=== PATIENT | female | born 2000 | race Caucasian/White ===

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

== ENCOUNTER 2019-03-19 14:01 | Outpatient (REF) | payer MEDICAID, SELFPAY ==
[2019-03-19 21:19] LABS: HCT 41.5 % (36.0-46.0); HGB 13.8 g/dL (12.0-15.5); Mean Corp. HGB Concentration 33.3 g/dL (32.0-36.0); Mean Corpuscular Hemoglobin 29.6 pg (27.0-33.0); Mean Corpuscular Volume 89.1 fL (80-95); Mean Platelet Volume 11.7 fL (8.0-11.0); Platelet Count 259 x1000/uL (130-400); RBC 4.66 m/cumm (4.00-5.20); RBC Distribution Width 13.3 % (11.7-14.6); White Blood Cell Count 12.33 k/cumm (4.4-10.8)
[2019-03-19 21:30] LABS: Anion Gap 10.9 mmol/L (3-11); BUN 10 mg/dL (7-18); CO2 25.1 mmol/L (21.0-32.0); CREATININE 0.58 mg/dL (0.55-1.02); Calcium 9.3 mg/dL (8.5-10.1); Chloride 105 mmol/L (98-107); Glucose 102 mg/dL (70-100); Sodium 141 mmol/L (136-145); TSH (W/Ref FT4) 1.52 uIU/mL (0.52-4.13)
[2019-03-22 08:00] LABS: Vitamin D 25 Total 21.8 ng/ml (30-100)
== END 2019-03-19 14:21 ==
LOC: NCHCN 14:01
PROVIDERS: PCP Pediatrics; Visit Provider Nurse Practitioner Family
DX: R53.83 Other fatigue (principal)
CPT/HCPCS: 80048; 82306; 85027; 84443

== ENCOUNTER 2020-06-02 13:48 | Outpatient (CLI) | payer SELFPAY ==
[2020-06-05 10:23] LABS: SARS-CoV-2 RNA Not Detected (NotDetected); SARS-CoV-2 RNA Source Nasal/Nares
== END 2020-06-02 14:08 ==
PROVIDERS: PCP Pediatrics; Visit Provider Nurse Practitioner Family
DX: J06.9 Acute upper respiratory infection, unspecified (principal)
CPT/HCPCS: U0003

== ENCOUNTER 2020-06-16 13:53 | Outpatient (CLI) | payer SELFPAY ==
[2020-06-19 14:16] LABS: COVID-19 RT-PCR Result NEGATIVE (Negative)
== END 2020-06-16 14:13 ==
PROVIDERS: PCP Pediatrics; Visit Provider Nurse Practitioner Family
DX: Z20.828 Contact with and (suspected) exposure to other viral communicable diseases (principal)
CPT/HCPCS: U0003

== ENCOUNTER 2020-06-21 17:16 | Outpatient (REF) | payer SELFPAY ==
[2020-06-24 09:59] LABS: COVID-19 RT-PCR Result NEGATIVE (Negative)
== END 2020-06-21 17:36 ==
LOC: NCHCN 17:16
PROVIDERS: PCP Pediatrics; Visit Provider Nurse Practitioner Family
DX: Z20.828 Contact with and (suspected) exposure to other viral communicable diseases (principal)
CPT/HCPCS: U0003

== ENCOUNTER 2021-02-09 14:49 | Outpatient (REF) | payer OTHER, SELFPAY ==
--- NOTE | 2021-02-09 14:00 | PAPFT_PTH ---
PATIENT: Rehana Escamilla LOC: [facility] U#:[id number] AGE/SX: 20/F ROOM: RE02/09/[address]: Nereida Burns : 2000 BED: DIS: 02/09/2021 SPEC #: [id number] RECD: 02/12/21 13:11 STATUS: CHEO BROWN #: [id number] ANABEL: 02/09/21 14:[address]: Nereida Burns DEPT: [facility] Cytology RECD BY: Anastasiya Bishop ENTERED: 02/12/21 13:11 SP TYPE: PAPFT OTHR DR: Sherlyn Butcher MD Tissues: 1 - CX/ENDOCX FOR PAP SMEARS Procedures: PAP THIN PREP/[facility] Screening Comments: [id number] (CHLAMYDIA/GC)
[2021-02-13 14:59] LABS: Chlamydia Result Negative (Negative); GC Result Negative (Negative)
== END 2021-02-09 14:50 | disposition home or self-care (01) ==
LOC: LBN 14:49
PROVIDERS: PCP Pediatrics; Visit Provider Nurse Practitioner Family
DX: Z00.00 Encounter for general adult medical examination without abnormal findings (principal); Z01.419 Encounter for gynecological examination (general) (routine) without abnormal findings; Z12.4 Encounter for screening for malignant neoplasm of cervix; Z11.3 Encounter for screening for infections with a predominantly sexual mode of transmission
CPT/HCPCS: 87491; 87591; 88142

== ENCOUNTER 2021-03-14 14:05 | Outpatient (CLI) | payer OTHER, SELFPAY ==
--- NOTE | 2021-03-14 | DI.RAD_ITS ---
Exam(s) XR FOOT LT COMPLETE EXAM: XR FOOT LT COMPLETE CLINICAL HISTORY: ROLLED ANKLE, TENDER BRUISING BASE OF 5TH METARSAL,PAIN. TECHNIQUE: 2D digital imaging was performed. COMPARISON: No exams were available for comparison FINDINGS: BONES: There is a question of a lucency versus artifact seen on the dorsal plantar view at the base o f the 5th metatarsal extending transversely. No bony destructive lesion is seen. JOINTS: No dislocation present. SOFT TISSUE: Normal. IMPRESSION: Question of a nondisplaced fracture versus artifact of the base of the 5th metatarsal. DATA REPOSITORY: RADIATION DOSE DELIVERED:
== END 2021-03-14 14:25 ==
PROVIDERS: PCP Pediatrics; Visit Provider Family Medicine
DX: M25.572 Pain in left ankle and joints of left foot (principal)
CPT/HCPCS: 73630

== ENCOUNTER 2021-10-15 08:35 | Emergency (ER) | payer OTHER, SELFPAY ==
[2021-10-15 08:44] VITALS: BP 98/74; PULSE 60; RESP 16; TEMP 36.5; O2SAT 99
--- NOTE | 2021-10-15 08:59 | ED.GENADUL_ITS ---
Discharge Plan Disposition Patient Disposition: HOME Condition: Improving Discharge Details Clinical Impression: Gastroenteritis Primary Care Provider: Jeremiah Easton ED Provider: Vaughn Bauman Home Meds and New Rx's Prescriptions: New ondansetron 4 mg tablet,disintegrating 4 mg PO Q6H PRN (Reason: nausea and vomiting) Qty: 10 0RF Continued escitalopram oxalate [Lexapro] 20 mg tablet 20 mg PO DAILY 0RF hydroxyzine HCl 25 mg tablet 25 mg PO QHS 0RF sertraline 50 mg tablet 75 mg PO DAILY 0RF calcium carbonate-vitamin D3 600 mg(1,500mg) -800 unit tablet 1 tab PO DAILY 0RF Nexplanon 68 MG implant 68 mg SQ ONCE Qty: 1 0RF lidocaine [Lidoderm] 1 PATCH patch 1 patch Topical Q24H Qty: 4 0RF Discharge Instructions Instructions: Gastroenteritis (ED) Additional Instructions: Please feel free to return to the emergency department if you have any new or significant worsening of symptoms such as severe abdominal pain, uncontrollable vomiting, persistent fever, or change in condition. Please stay well-hydrated and if you do not have any improvement over the next couple days feel free to reach out to your primary care provider for reassessment as needed. Referrals: Jeremiah Easton [Primary Care Provider] - 5 days (If not improving) Discharge Data Discharge Date/Time-TO BE ENTERED AT DEPARTURE: 10/15/21 13:30 Medical Decision Making Patient presenting to the emergency department for chief complaint of abdominal pain nausea vomiting. Approximately 2 hours prior to arrival she started having left upper quadrant pain, nausea and vomiting. Patient does state subjective fever and chills otherwise denies all other symptoms. Physical exam shows diffuse abdominal tenderness with slightly more point tenderness to left upper quadrant. Exam otherwise unremarkable. Plan to perform abdominal lab hydrate and give antiemetic and pain medication pending results. We will also plan on CT imaging Review of labs show a significant elevated white count of 21.44 with elevation of absolute neutrophils otherwise nondiagnostic. CMP shows elevated anion gap, low carbon dioxide elevated glucose and high total protein. I am concerned for possible dehydration and will give additional fluids. Lipase is normal and beyond urine ketones urine is nondiagnostic. CT shows possible colitis. Will plan on giving additional fluids and repeat of labs. Reassesed patinet after fluids which she states she feels better. Labs were drawn and PO challenged patient Labs have improved and pt tolerating PO intake will DC patient with standard return and follow up precautions Imaging Data Radiologic Study: Imaging: CT Scan Radiologist's impression: IMPRESSION: 1. Colon is collapsed. This appearance may mimic that of colitis. Correlation with clinical findings recommended. Correlation with any clinical signs of ulcerative colitis recommended. There is no evidence of appendicitis. No significant diverticular disease. 2. There is a 24 x 24 x 26 millimeter cyst in the left ovary. There is small amount of fluid in the cul-de-sac. 3. Subtle evidence of possible sacroiliitis. Lab Data Lab results reviewed: Yes I reviewed the patient's lab results. Labs: Laboratory Tests Range/Units 10/15/21 10/15/21 10/15/21 09:05 09:05 10:13 WBC (4.4-10.8) 10^3/uL 21.44 H RBC (3.93-5.22) 10^6/uL 4.99 Hgb (11.2-15.7) g/dL 14.5 Hct (36.0-46.0) % 44.2 MCV (80-95) fL 88.6 MCH (27.0-33.0) pg 29.1 MCHC (32.0-36.0) % 32.8 RDW (11.7-14.6) % 12.7 Plt Count (130-400) 10^3/uL 353 MPV (8.0-11.0) fL 11.3 H Immature Gran % 0.5 Neutrophils % 83.6 Lymphocytes % 10.6 Monocytes % 3.5 Eosinophils % 1.1 Basophils % 0.7 Nucleated RBC % % 0 Absolute Neutrophils (1.2-6.7) 10^3/uL 17.92 H Absolute Lymphocytes (1.2-3.4) 10^3/uL 2.27 Absolute Monocytes (0.1-0.8) 10^3/uL 0.75 Absolute Eosinophils (0.0-0.7) 10^3/uL 0.24 Absolute Basophils (0.0-0.2) 10^3/uL 0.15 Sodium (136-145) mmol/L 138 Potassium (3.5-5.1) mmol/L 3.8 Chloride (98-107) mmol/L 103 Carbon Dioxide (21.0-32.0) mmol/L 20.1 L Anion Gap (3-11) mmol/L 14.9 H BUN (7-18) mg/dL 9 Creatinine (0.55-1.02) mg/dL 0.7 Estimated GFR/1.73 m2 (mL/min/1.73m2) >= 60.00 Glucose (74-106) mg/dL 178 H Calcium (8.5-10.1) mg/dL 9.6 Magnesium (1.8-2.4) mg/dL 1.8 Total Bilirubin (0.2-1.0) mg/dL 0.3 AST (15-37) U/L 19 ALT (14-59) U/L 29 Alkaline Phosphatase (46-116) U/L 116 Total Protein (6.4-8.2) g/dL 8.4 H Albumin (3.4-5.0) g/dL 4.7 Lipase (73-393) U/L 35 Urine Color (Yellow) Yellow Urine Clarity (Clear) Clear Urine pH (5-8) 8.5 H Ur Specific [place] (1.005-1.025) 1.025 Urine Protein (Negative) mg/dL Negative Urine Ketones (Negative) mg/dL Trace H Urine Blood (Negative) Negative Urine Nitrite (Negative) Negative Urine Bilirubin (Negative) Negative Urine Urobilinogen (Up TO 0.2) EU/dL 0.2 Ur Leukocyte Esterase (Negative) Negative Urine Glucose (Negative) mg/dL Negative Range/Units 10/15/21 13:07 WBC (4.4-10.8) 10^3/uL 12.38 H D RBC (3.93-5.22) 10^6/uL 4.31 Hgb (11.2-15.7) g/dL 12.6 Hct (36.0-46.0) % 38.8 MCV (80-95) fL 90.0 MCH (27.0-33.0) pg 29.2 MCHC (32.0-36.0) % 32.5 RDW (11.7-14.6) % 12.7 Plt Count (130-400) 10^3/uL 275 MPV (8.0-11.0) fL 11.2 H Immature Gran % 0.4 Neutrophils % 85.9 Lymphocytes % 9.9 Monocytes % 3.0 Eosinophils % 0.1 Basophils % 0.7 Nucleated RBC % % 0 Absolute Neutrophils (1.2-6.7) 10^3/uL 10.63 H Absolute Lymphocytes (1.2-3.4) 10^3/uL 1.23 Absolute Monocytes (0.1-0.8) 10^3/uL 0.37 Absolute Eosinophils (0.0-0.7) 10^3/uL 0.01 Absolute Basophils (0.0-0.2) 10^3/uL 0.09 Sodium (136-145) mmol/L Potassium (3.5-5.1) mmol/L Chloride (98-107) mmol/L Carbon Dioxide (21.0-32.0) mmol/L Anion Gap (3-11) mmol/L BUN (7-18) mg/dL Creatinine (0.55-1.02) mg/dL Estimated GFR/1.73 m2 (mL/min/1.73m2) Glucose (74-106) mg/dL Calcium (8.5-10.1) mg/dL Magnesium (1.8-2.4) mg/dL Total Bilirubin (0.2-1.0) mg/dL AST (15-37) U/L ALT (14-59) U/L Alkaline Phosphatase (46-116) U/L Total Protein (6.4-8.2) g/dL Albumin (3.4-5.0) g/dL Lipase (73-393) U/L Urine Color (Yellow) Urine Clarity (Clear) Urine pH (5-8) Ur Specific [place] (1.005-1.025) Urine Protein (Negative) mg/dL Urine Ketones (Negative) mg/dL Urine Blood (Negative) Urine Nitrite (Negative) Urine Bilirubin (Negative) Urine Urobilinogen (Up TO 0.2) EU/dL Ur Leukocyte Esterase (Negative) Urine Glucose (Negative) mg/dL HPI General Mode of arrival: ambulatory . Date/Time Provider Initiated Documentation: 10/15/21 08:50 . Limitations to Documentation: no limitations . Information obtained by: patient, RN notes reviewed and old records reviewed . History of Present Illness 20 year old F presents to the emergency department with the chief complaint of Abdominal pain, described as moderate, with intensity rated at 8. Quality is described as aching, and is localized to the abdomen. Patient reports no radiation. Patient started experiencing this hour(s) (2) and it has been constant. improves with No relieving factors improve symptom(s), No exacerbating factors reported . Patient notes fever/chills and nausea/vomiting. Patient did receive the following treatments prior to arrival, none Related Data Home Medications Medication Instructions Recorded Confirmed etonogestrel 68 mg subdermal 68 mg SQ ONCE #1 implant 01/09/18 10/15/21 implant (Nexplanon) lidocaine 5 % topical patch 1 patch TOPICAL Q24H #4 patch 08/29/18 10/15/21 (Lidoderm) escitalopram oxalate 20 mg tablet 20 mg PO DAILY 01/12/21 10/15/21 (Lexapro) hydroxyzine HCl 25 mg tablet 25 mg PO QHS 01/12/21 10/15/21 calcium carbonate 600 mg-vitamin 1 tab PO DAILY 04/03/21 10/15/21 D3 20 mcg (800 unit) tablet sertraline 50 mg tablet 75 mg PO DAILY tab 04/03/21 10/15/21 ondansetron 4 mg disintegrating 4 mg PO Q6H PRN #10 tab 10/15/21 tablet Previous Rx's Medication Instructions Recorded etonogestrel 68 mg subdermal 68 mg SQ ONCE #1 implant 01/09/18 implant (Nexplanon) lidocaine 5 % topical patch 1 patch TOPICAL Q24H #4 patch 08/29/18 (Lidoderm) ondansetron 4 mg disintegrating 4 mg PO Q6H PRN #10 tab 10/15/21 tablet Allergies Allergy/AdvReac Type Severity Reaction Status Date / Time nickel Allergy rash Unverified 10/15/21 08:51 General Stated Complaint: Abd Prob ASHER: 3 Review of Systems Constitutional Constitutional: Reports chills, Denies fever(s) and Reports poor appetite Cardiovascular Cardiovascular: Denies chest pain and Denies dyspnea Respiratory Respiratory: Denies cough and Denies dyspnea Gastrointestinal Gastrointestinal: Reports as per HPI, Reports abdominal pain, Denies melena, Denies change in bowel habits, Denies constipation, Denies diarrhea, Reports nausea and Reports vomiting Genitourinary Genitourinary: Denies hematuria, Denies urinary incontinence, Denies urinary hesitancy and Denies urinary urgency Integumentary/Breasts Skin/Breast: Denies rash PFSH All Active Problems (Updated 10/15/21 @ 13:25 by Vaughn Bauman NP) Gastroenteritis (Acute) Contraceptive management (Acute) Medical History Depression Nexplanon in place 12/22/2017 Nexplanon inserted Tobacco use Family History Mother No problems noted. Father Essential hypertension Social History Smoking/Tobacco Use Status: Current every day Tobacco Type: cigarettes Second Hand Exposure: Yes Smoking risk assessment performed?: Yes Alcohol Intake: current Alcohol Intake frequency: other Details: ONCE PER WEEK Drug use: Daily Substance use type: marijuana and other Details: daily Number of Children: 0 Current gender identity: female Seatbelt use: always Do you feel safe at home: Yes Do you feel safe in your relationship?: Yes Female Reproductive History Menstrual Age of Menarche: 11 control method: implanted (NEXPLANON) Exam Const General: cooperative Orientation: alert, awake and oriented x3 Resp Effort & Inspection: normal respiratory effort and able to speak in complete sentences Auscultation: clear to auscultation bilaterally Cardio Rate: regular rate Rhythm: regular rhythm Heart Sounds: S1 normal and S2 normal GI Palpation: soft, no hepatosplenomegaly, not firm, no guarding, no masses, no pulsatile masses, not rigid, no splenomegaly and tender Auscultation: normal bowel sounds Back/Spine/Pelvis Back: no CVA tenderness Neuro General: patient alert, patient awake, patient oriented x3, gait normal and moves all extremities Course Vital Signs Vital signs: Vital Signs Temperature 36.5 C 10/15/21 08:44 Pulse 60 10/15/21 08:44 Respiratory Rate 16 10/15/21 08:44 Blood Pressure 98/74 L 10/15/21 08:44 Pulse Oximetry 99 10/15/21 08:44 Temperature 36.5 C 10/15/21 08:44 Temperature Source Oral 10/15/21 08:44 Pulse 60 10/15/21 08:44 Respiratory Rate 16 10/15/21 08:44 Respiratory Effort Non-Labored 10/15/21 08:50 Blood Pressure 98/74 L 10/15/21 08:44 Blood Pressure Position Sitting 10/15/21 08:44 Pulse Oximetry 99 10/15/21 08:44 Oxygen Delivery Method Room Air 10/15/21 08:44 Oxygen Flow Rate 0 10/15/21 08:44 Pain Level 9 10/15/21 08:44
[2021-10-15] MEDS: Normal Saline Flush 10 ML SYR IVP (09:12)
[2021-10-15] MEDS: Ondansetron 4 MG/2 ML VIAL IVP (09:14)
[2021-10-15] MEDS: Normal Saline 1,000 ML 1000 ML IV ×2 (09:15→11:59)
[2021-10-15 09:17] LABS: Abs Immature Grans 0.11 10^3/uL (0.0-0.06); Absolute Eosinophil Count 0.24 10^3/uL (0.0-0.7); Absolute Monocyte Count 0.75 10^3/uL (0.1-0.8); Absolute Neutrophil Count 17.92 10^3/uL (1.2-6.7); Basophils % 0.7; Eosinophils % 1.1; HCT 44.2 % (36.0-46.0); HGB 14.5 g/dL (11.2-15.7); Immature Grans % 0.5; Lymphocytes % 10.6; MCH 29.1 pg (27.0-33.0); MCHC 32.8 % (32.0-36.0); MCV 88.6 fL (80-95); MPV 11.3 fL (8.0-11.0); Monocytes % 3.5; Neutrophils % 83.6; Nucleated RBC 0 %; Platelet Count 353 10^3/uL (130-400); RBC 4.99 10^6/uL (3.93-5.22); RDW 12.7 % (11.7-14.6); RDW-SD 41.1 fL; WBC 21.44 10^3/uL (4.4-10.8)
[2021-10-15 09:22] LABS: Absolute Basophil Count 0.15 10^3/uL (0.0-0.2); Absolute Lymphocyte Count 2.27 10^3/uL (1.2-3.4)
[2021-10-15 09:30] LABS: ALT 29 U/L (14-59); AST 19 U/L (15-37); Albumin 4.7 g/dL (3.4-5.0); Alkaline Phosphatase 116 U/L (46-116); Anion Gap 14.9 mmol/L (3-11); BUN 9 mg/dL (7-18); Bilirubin, Total 0.3 mg/dL (0.2-1.0); CO2 20.1 mmol/L (21.0-32.0); CREATININE 0.7 mg/dL (0.55-1.02); Calcium 9.6 mg/dL (8.5-10.1); Chloride 103 mmol/L (98-107); Glucose 178 mg/dL (74-106); Lipase 35 U/L (73-393); Magnesium 1.8 mg/dL (1.8-2.4); Potassium 3.8 mmol/L (3.5-5.1); Sodium 138 mmol/L (136-145); Total Protein 8.4 g/dL (6.4-8.2)
[2021-10-15] MEDS: HYDROmorphone 2 MG/ML VIAL 1 MG IVP (10:25)
[2021-10-15 10:26] LABS: Bilirubin Negative (Negative); Blood Negative (Negative); Clarity Clear (Clear); Glucose Negative (Negative); Ketones Trace mg/dL (Negative); Leukocyte Esterase Negative (Negative); Nitrite Negative (Negative); Specific Gravity 1.025 (1.005-1.025); Urobilinogen 0.2 EU/dL (Up TO 0.2); pH 8.5 (5-8)
--- NOTE | 2021-10-15 11:01 | DI.CT_ITS ---
Exam(s) CT ABDOMEN PELVIS W EXAM: CT ABDOMEN PELVIS W CLINICAL HISTORY: Left upper quadrant abdominal pain nausea vomiting. TECHNIQUE: Imaging Protocol: Axial computed tomography images with coronal and sagittal reformatted images were created and reviewed CONTRAST MATERIAL: Intravenous: Omnipaque 100cc Oral: None COMPARISON: No exams were available for comparison FINDINGS: VISUALIZED LUNG BASES: No nodules nor pleural effusions evident. ABDOMEN: There is no ascites. LIVER: There are no focal hepatic lesions evident . GALLBLADDER/BILIARY: No obvious gallbladder pathology. CBD is not dilated. PANCREAS: No evidence of pancreatic mass nor dilatation of the pancreatic duct. SPLEEN: Spleen size is normal. No splenic lesions. One centimeter benign splenule noted anterior to the spleen. Left hepatic lobe crosses the midline to encircle the spleen, a variant of normal. Spl enic and portal veins are patent. ADRENALS: There are no significant adrenal masses. KIDNEYS:No cysts evident. No solid renal masses. No calculi nor hydronephrosis.. ABDOMINAL AORTA: Abdominal aorta is not enlarged. LYMPH NODES:There is no retroperitoneal nor paraaortic adenopathy. ABDOMINAL WALL: No evidence of significant anterior abdominal wall nor inguinal hernia. GI: There is no evidence of bowel obstruction, free air, nor abscess. However, the appearance of the transverse colon is somewhat suspect. Cannot exclude possibility of c olitis although similar for appearance can be seen with simply under XXXX under distended colon. The re are no diverticuli. No appendicitis PELVIS: GI: No evidence of appendicitis.No evidence of sigmoid diverticulitis. LYMPH NODES: There is no intrapelvic nor inguinal adenopathy. REPRODUCTIVE: Uterus size is normal. There is a cyst in the left ovary which measures 2.4 x 2.4 by 2 .6 cm. Smaller cysts are noted in the opposite-right ovary. There is a small amount of free fluid i n the cul-de-sac. URINARY BLADDER: No calculi nor obvious masses evident OSSEOUS: No significant osseous lesions. There is some increased density in both sides of the sacroiliac joints. Possible sacroiliitis. No a nkylosis of the SI joints. IMPRESSION: 1. Colon is collapsed. This appearance may mimic that of colitis. Correlation with clinical finding s recommended. Correlation with any clinical signs of ulcerative colitis recommended. There is no e vidence of appendicitis. No significant diverticular disease. 2. There is a 24 x 24 x 26 millimeter cyst in the left ovary. There is small amount of fluid in the cul-de-sac. 3. Subtle evidence of possible sacroiliitis. 4. RADIATION DOSE DELIVERED: 748.45mGy.cm Total DLP DATA REPOSITORY: All CT scans at this facility are submitted to the National Radiology Data Registry (NRDR) Dose Index Registry (DIR) with the [employer] ([employer]). RADIATION OPTIMIZATION: All CT scans at this facility use at least one of these dose optimization te chniques: automated exposure control; mA and/or kV adjustment per patient size (includes targeted exa ms where dose is matched to clinical indication); or iterative reconstruction.
[2021-10-15] MEDS: Omnipaque 350 MG/ML 100 ML BTL IJ (11:09)
[2021-10-15 13:15] LABS: Abs Immature Grans 0.05 10^3/uL (0.0-0.06); Absolute Basophil Count 0.09 10^3/uL (0.0-0.2); Absolute Eosinophil Count 0.01 10^3/uL (0.0-0.7); Absolute Monocyte Count 0.37 10^3/uL (0.1-0.8); Basophils % 0.7; Eosinophils % 0.1; HCT 38.8 % (36.0-46.0); HGB 12.6 g/dL (11.2-15.7); Immature Grans % 0.4; Lymphocytes % 9.9; MCH 29.2 pg (27.0-33.0); MCHC 32.5 % (32.0-36.0); MPV 11.2 fL (8.0-11.0); Neutrophils % 85.9; Nucleated RBC 0 %; Platelet Count 275 10^3/uL (130-400); RBC 4.31 10^6/uL (3.93-5.22); RDW 12.7 % (11.7-14.6); RDW-SD 42.4 fL; WBC 12.38 10^3/uL (4.4-10.8)
[2021-10-15 13:16] LABS: Absolute Lymphocyte Count 1.23 10^3/uL (1.2-3.4); Absolute Neutrophil Count 10.63 10^3/uL (1.2-6.7)
== END 2021-10-15 13:30 | disposition home or self-care (01) ==
PROVIDERS: Emergency Provider Nurse Practitioner Family; PCP Family Medicine
DX: K52.9 Noninfective gastroenteritis and colitis, unspecified (principal); D72.829 Elevated white blood cell count, unspecified; R50.9 Fever, unspecified; R10.12 Left upper quadrant pain; R11.2 Nausea with vomiting, unspecified
CPT/HCPCS: 36415; 80053; 81025; 83690; 96361; 96365; 96375; 99285; 74177; 81003; 83735; 85025; 99284; J2405; J3490

== ENCOUNTER 2022-02-12 09:34 | Emergency (ER) | payer BC, SELFPAY ==
[2022-02-12 09:39] VITALS: BP 130/74; PULSE 60; RESP 20; TEMP 36.2; O2SAT 100
--- NOTE | 2022-02-12 09:58 | W.ED.GENAD ---
Discharge Plan Disposition Patient Disposition: HOME Condition: Improving Discharge Details Clinical Impression: Nausea and vomiting, Abdominal pain Primary Care Provider: Jeremiah Easton ED Provider: Pablo Powell Home Meds and New Rx's Prescriptions: New prochlorperazine maleate [Compazine] 10 mg tablet 10 mg PO Q8H PRNQty: 10 0RF promethazine 25 mg suppository 25 mg [place] Q6H PRNQty: 12 0RF Continued escitalopram oxalate [Lexapro] 20 mg tablet 20 mg PO DAILY hydroxyzine HCl 25 mg tablet 25 mg PO QHS Nexplanon 68 MG implant 68 mg SQ ONCE Qty: 1 0RF omeprazole 40 mg Capsule,Delayed Release(Dr/Ec) 40 mg PO DAILY bupropion HCl 300 mg Tablet Extended Release 24 Hr 300 mg PO DAILY Discharge Instructions Instructions: Acute Nausea and Vomiting (ED), Abdominal Pain (ED) Additional Instructions: Compazine and Phenergan as directed. Clear liquid diet, advance as tolerated. Please watch for new or worsening symptoms and return to the ER as needed. I strongly recommend contacting your primary care provider later today or tomorrow to discuss your ongoing symptoms, need for outpatient reevaluation, and likely referral to our surgical team for potential endoscopy. Stand Alone Forms: Work Release Discharge Data Discharge Date/Time-TO BE ENTERED AT DEPARTURE: 02/12/22 15:02 Medical Decision Making 21-year-old female presents with intermittent abdominal pain, nausea, vomiting, diarrhea since her first episode in October. This episode began this morning just a few hours ago. She has been seen by her PCP, started on omeprazole, and plan to have a H. pylori test once she is off of her omeprazole. I reviewed the record from October when she had a similar presentation, it appears as though Zofran worked well at that time. I have initially ordered Zofran but patient and family report that she has been told that she has a sinus arrhythmia in the past. Patient will have an EKG performed. Based upon EKG, will give Phenergan rather than Zofran. IV access obtained, will obtain routine screening laboratory values, give IV fluid, and provide antiemetics. Patient received Phenergan, nausea improved but continues to have pain. Mylanta and lidocaine given p.o., patient reports significant improvement of her pain Patient reports nausea and vomiting again, given Compazine. Responded well. White blood cell count of 17.16; however, on 10-15-2021 when she had a similar presentation her white blood cell count was 21.44. CT at that time revealed potential mild colitis. Anion gap is 13.6. Symptoms returned, given IV Pepcid and a second dose of Phenergan. Patient received her second liter of IV fluid. Labs were redrawn, anion gap closed. Patient responded well to meds, abdomen is soft, nonacute, she is afebrile, and had a very similar presentation in October when she had a CT at that time. We did discuss repeating CT at this time but after discussing risks and benefits of repeating same study, radiation, etc. using shared decision making we opted not to pursue CT imaging. Patient continues to have occasional breakthrough nausea. We discussed options. We discussed potential admission for IV antiemetics, hydration versus dual therapy antiemetics at home, oral Compazine, suppository Phenergan, and close outpatient follow-up. Patient would prefer to go home but understands that she can return anytime for new or worsening symptoms. We also discussed the importance of outpatient follow-up through her PCP as referral to surgery services, potential endoscopy, etc. may all be indicated for further evaluation of her symptoms. We also discussed cannabinoid hyperemesis, patient reports that she is smoking marijuana daily for nearly 8 years and the symptoms are only a few months in nature. Standard discharge and return precautions were provided. Patient understands, is agreeable to this plan, and has no additional questions or concerns upon discharge. This documentation was generated using [employer] dictation system, please disregard any oddities of phrase or misspellings. Medical Records Medical records reviewed: Yes I reviewed the patient's medical records. Lab Data Lab results reviewed: Yes I reviewed the patient's lab results. Labs: Laboratory Tests Range/Units 02/12/22 02/12/22 02/12/22 09:50 09:50 12:15 WBC (4.4-10.8) 10^3/uL 17.16 H RBC (3.93-5.22) 10^6/uL 4.92 Hgb (11.2-15.7) g/dL 14.4 Hct (36.0-46.0) % 42.4 MCV (80-95) fL 86 MCH (27.0-33.0) pg 29.3 MCHC (32.0-36.0) % 34.0 RDW (11.7-14.6) % 13.1 Plt Count (130-400) 10^3/uL 309 MPV (8.0-11.0) fL 11.2 H Immature Gran % 0.5 Neutrophils % 86.0 Lymphocytes % 9.4 Monocytes % 3.1 Eosinophils % 0.3 Basophils % 0.7 Nucleated RBC % (0.0-0.3) % 0.0 Absolute Neutrophils (1.2-6.7) 10^3/uL 14.76 H Absolute Lymphocytes (1.2-3.4) 10^3/uL 1.61 Absolute Monocytes (0.1-0.8) 10^3/uL 0.53 Absolute Eosinophils (0.0-0.7) 10^3/uL 0.05 Absolute Basophils (0.0-0.2) 10^3/uL 0.12 Sodium (136-145) mmol/L 134 L Potassium (3.5-5.1) mmol/L 3.7 Chloride (98-107) mmol/L 102 Carbon Dioxide (21.0-32.0) mmol/L 18.4 L Anion Gap (3-11) mmol/L 13.6 H BUN (7-18) mg/dL 12 Creatinine (0.55-1.02) mg/dL 0.6 Estimated GFR/1.73 m2 (mL/min/1.73m2) >= 60.00 Glucose (74-106) mg/dL 179 H Calcium (8.5-10.1) mg/dL 9.8 Total Bilirubin (0.2-1.0) mg/dL 0.4 AST (15-37) U/L 18 ALT (14-59) U/L 38 Alkaline Phosphatase (46-116) U/L 91 Total Protein (6.4-8.2) g/dL 8.3 H Albumin (3.4-5.0) g/dL 4.8 Lipase (73-393) U/L 51 Urine Color (Yellow) Yellow Urine Clarity (Clear) Clear Urine pH (5-8) 7.5 Ur Specific Norvell (1.005-1.025) 1.025 Urine Protein (Negative) mg/dL Negative Urine Ketones (Negative) mg/dL 40 H Urine Blood (Negative) Trace-lysed H Urine Nitrite (Negative) Negative Urine Bilirubin (Negative) Negative Urine Urobilinogen (Up TO 0.2) EU/dL 0.2 Ur Leukocyte Esterase (Negative) Negative Urine RBC (0-2) HPF 0-2 Urine WBC (0-5) HPF Negative Ur Epithelial Cells (Negative) HPF Few Urine Crystals (Negative) HPF Negative Urine Bacteria (Negative) HPF Negative Urine Casts (Negative) LPF Negative Urine Mucus (Negative) Negative Ur Culture Indicated? No Urine Glucose (Negative) mg/dL Negative Range/Units 02/12/22 12:34 WBC (4.4-10.8) 10^3/uL RBC (3.93-5.22) 10^6/uL Hgb (11.2-15.7) g/dL Hct (36.0-46.0) % MCV (80-95) fL MCH (27.0-33.0) pg MCHC (32.0-36.0) % RDW (11.7-14.6) % Plt Count (130-400) 10^3/uL MPV (8.0-11.0) fL Immature Gran % Neutrophils % Lymphocytes % Monocytes % Eosinophils % Basophils % Nucleated RBC % (0.0-0.3) % Absolute Neutrophils (1.2-6.7) 10^3/uL Absolute Lymphocytes (1.2-3.4) 10^3/uL Absolute Monocytes (0.1-0.8) 10^3/uL Absolute Eosinophils (0.0-0.7) 10^3/uL Absolute Basophils (0.0-0.2) 10^3/uL Sodium (136-145) mmol/L 136 Potassium (3.5-5.1) mmol/L 3.3 L Chloride (98-107) mmol/L 104 Carbon Dioxide (21.0-32.0) mmol/L 22.8 Anion Gap (3-11) mmol/L 9.2 BUN (7-18) mg/dL 9 Creatinine (0.55-1.02) mg/dL 0.6 Estimated GFR/1.73 m2 (mL/min/1.73m2) >= 60.00 Glucose (74-106) mg/dL 112 H Calcium (8.5-10.1) mg/dL 8.6 Total Bilirubin (0.2-1.0) mg/dL AST (15-37) U/L ALT (14-59) U/L Alkaline Phosphatase (46-116) U/L Total Protein (6.4-8.2) g/dL Albumin (3.4-5.0) g/dL Lipase (73-393) U/L Urine Color (Yellow) Urine Clarity (Clear) Urine pH (5-8) Ur Specific Norvell (1.005-1.025) Urine Protein (Negative) mg/dL Urine Ketones (Negative) mg/dL Urine Blood (Negative) Urine Nitrite (Negative) Urine Bilirubin (Negative) Urine Urobilinogen (Up TO 0.2) EU/dL Ur Leukocyte Esterase (Negative) Urine RBC (0-2) HPF Urine WBC (0-5) HPF Ur Epithelial Cells (Negative) HPF Urine Crystals (Negative) HPF Urine Bacteria (Negative) HPF Urine Casts (Negative) LPF Urine Mucus (Negative) Ur Culture Indicated? Urine Glucose (Negative) mg/dL ECG Data Attestation: I personally reviewed and interpreted this ECG (s) as follows: Interpretation: Sinus bradycardia, ventricular rate of 53. Peaked T waves inferior and anterior lateral leads. Question minimal [place] depression. No STEMI. HPI General Mode of arrival: ambulatory. Date/Time Provider Initiated Documentation: 02/12/22 09:35. Limitations to Documentation: no limitations. Information obtained by: patient. History of Present Illness 21 year old F presents to the emergency department with the chief complaint of abd pain n/v/d, described as moderate, with intensity rated at 5. Quality is described as other (crampy), and is localized to the abdomen. Patient reports no radiation. Patient started experiencing this hour(s) (3) and it has been constant. No relieving factors improve symptom(s), No exacerbating factors reported . Patient notes no other symptoms.. Patient did receive the following treatments prior to arrival, none Related Data Home Medications Medication Instructions Recorded Confirmed etonogestrel 68 mg subdermal 68 mg SQ ONCE #1 implant 01/09/18 02/12/22 implant (Nexplanon) escitalopram oxalate 20 mg tablet 20 mg PO DAILY 01/12/21 02/12/22 (Lexapro) hydroxyzine HCl 25 mg tablet 25 mg PO QHS 01/12/21 02/12/22 bupropion HCl 300 mg 24 hr tablet, 300 mg PO DAILY 02/12/22 02/12/22 extended release omeprazole 40 mg capsule,delayed 40 mg PO DAILY 02/12/22 02/12/22 release prochlorperazine maleate 10 mg 10 mg PO Q8H PRN #10 tabs 02/12/22 tablet (Compazine) promethazine 25 mg rectal 25 mg [place] Q6H PRN #12 ea 02/12/22 suppository Previous Rx's Medication Instructions Recorded etonogestrel 68 mg subdermal 68 mg SQ ONCE #1 implant 01/09/18 implant (Nexplanon) prochlorperazine maleate 10 mg 10 mg PO Q8H PRN #10 tabs 02/12/22 tablet (Compazine) promethazine 25 mg rectal 25 mg [place] Q6H PRN #12 ea 02/12/22 suppository Allergies Allergy/AdvReac Type Severity Reaction Status Date / Time nickel Allergy rash Unverified 10/15/21 08:51 General Stated Complaint: Nausea/Vomit/Diar ASHER: 3 Review of Systems Constitutional Constitutional: Denies fever(s) ENT Ears, Nose, Mouth, and Throat: Denies neck pain Cardiovascular Cardiovascular: Denies chest pain and Denies dyspnea Respiratory Respiratory: Denies cough and Denies dyspnea Gastrointestinal Gastrointestinal: Reports abdominal pain, Denies melena, Denies hematochezia, Reports diarrhea, Reports nausea and Reports vomiting Genitourinary Genitourinary: Denies dysuria Musculoskeletal Musculoskeletal: Denies back pain and Denies neck pain Integumentary/Breasts Skin/Breast: Denies rash PFSH All Active Problems (Updated 02/12/22 @ 14:31 by TRAVON Bates) Nausea and vomiting (Acute) Abdominal pain (Acute) Contraceptive management (Acute) Medical History Depression Nexplanon in place 12/22/2017 Nexplanon inserted Tobacco use Family History Mother No problems noted. Father Essential hypertension Social History Smoking/Tobacco Use Status: Current every day Tobacco Type: cigarettes Second Hand Exposure: Yes Smoking risk assessment performed?: Yes Alcohol Intake: current Alcohol Intake frequency: other Details: ONCE PER WEEK Drug use: Daily Substance use type: marijuana and other Details: daily Number of Children: 0 Current gender identity: female Seatbelt use: always Do you feel safe at home: Yes Do you feel safe in your relationship?: Yes Female Reproductive History Menstrual Age of Menarche: 11 control method: implanted (NEXPLANON) Exam Const General: cooperative, healthy appearing, no acute distress and other (Occasional dry heave) Orientation: alert and awake [facility] Head: normal to inspection, normocephalic and atraumatic Face and sinus: normal facial exam Mouth: moist mucous membranes abnormal (Slightly dry) Throat: posterior oropharynx normal Eyes General: appearance normal, both eyes and all related structures Conjunctivae: conjunctivae normal Neck Neck: normal visual inspection, full ROM, trachea midline and supple Resp Effort & Inspection: normal respiratory effort and able to speak in complete sentences Auscultation: clear to auscultation bilaterally Cardio Rate: regular rate Rhythm: regular rhythm GI Inspection: normal to inspection Palpation: soft, not firm, no guarding, no pulsatile masses and tender (Diffuse mild, worse epigastric/LUQ) Auscultation: normal bowel sounds Back/Spine/Pelvis Back: no CVA tenderness and No back tenderness Skin General skin exam: no rashes or lesions noted Neuro General: patient alert, patient awake, moves all extremities and no focal motor deficits Cognition: normal cognition Speech: speech normal Gait: normal gait Sensory Exam: no sensory deficits noted Extrem General: normal to inspection and full ROM Psych Appearance: grossly normal Mental Status: mental status grossly normal Course Vital Signs Vital signs: Vital Signs Temperature 36.2 C L 02/12/22 09:39 Pulse 60 02/12/22 09:39 Respiratory Rate 20 02/12/22 09:39 Blood Pressure 130/74 02/12/22 09:39 Pulse Oximetry 100 02/12/22 09:39 Temperature 36.2 C L 02/12/22 09:39 Temperature Source Temporal Artery Scan 02/12/22 09:39 Pulse 60 02/12/22 09:39 Respiratory Rate 20 02/12/22 09:39 Respiratory Effort 02/12/22 09:50 Blood Pressure 130/74 02/12/22 09:39 Pulse Oximetry 100 02/12/22 09:39 Oxygen Delivery Method Room Air 02/12/22 09:39 Oxygen Flow Rate 0 02/12/22 09:39 Pain Level 9 02/12/22 09:39 PAWSS Have you Been Recently Intoxicated or Drunk Within the Last 30 days?: No Have you Ever Experienced Previous Episodes of Alcohol Withdrawal?: No Have you ever Experienced Withdrawal Seizures?: No Have you ever Experienced Delirium Tremens(DT)s?: No Have you ever undergone Alcohol Rehabilitation Treatment (i.e, inpt ot outpatient treatment programs)?: No Have you ever Experienced Blackouts?: No Have you ever Combined Alcohol with other Downers within the last 90 days?: No Have you ever Combined Alcohol with any other Substance of Abuse during the last 90 days?: No Positive Blood Alcohol level on Presentation? [PCS.BAL]: No Evidence of Increased Autonomic Activity (i.e. HR>120, tremor, sweating, agitation, nausea)?: No Result: 0
--- NOTE | 2022-02-12 10:00 | RT.EKG_ITS ---
APPROVED REPORT Exam: Resting ECG Reason for Exam: don, history Patient Location: E HR:53 bpm ECG Measurements Heart Rate 53 AXIS RI 151 P 53 QRSd 96 QRS 65 QT 511 T 55 QTc 481 Conclusion Sinus bradycardia...rate< 60 ST elevation suggests acute pericarditis...ST >0.10mV, ant/lat/inf Tall T, consider metabolic/ischemic abnrm...T >1.2mV. Sinus. Peaked T waves inferior and anterolateral leads. ?? RI depression. No STEMI.
[2022-02-12] MEDS: Normal Saline 1,000 ML 1000 ML IV (10:14)
[2022-02-12 10:16] LABS: Abs Immature Grans 0.09 10^3/uL (0.0-0.06); Absolute Basophil Count 0.12 10^3/uL (0.0-0.2); Absolute Lymphocyte Count 1.61 10^3/uL (1.2-3.4); Basophils % 0.7; Eosinophils % 0.3; HCT 42.4 % (36.0-46.0); HGB 14.4 g/dL (11.2-15.7); Immature Grans % 0.5; Lymphocytes % 9.4; MCH 29.3 pg (27.0-33.0); MCV 86 fL (80-95); MPV 11.2 fL (8.0-11.0); Monocytes % 3.1; Platelet Count 309 10^3/uL (130-400); RBC 4.92 10^6/uL (3.93-5.22); RDW 13.1 % (11.7-14.6); RDW-SD 41.1 fL; WBC 17.16 10^3/uL (4.4-10.8)
[2022-02-12 10:19] LABS: Absolute Eosinophil Count 0.05 10^3/uL (0.0-0.7); Absolute Monocyte Count 0.53 10^3/uL (0.1-0.8); Absolute Neutrophil Count 14.76 10^3/uL (1.2-6.7)
[2022-02-12 10:35] LABS: ALT 38 U/L (14-59); AST 18 U/L (15-37); Albumin 4.8 g/dL (3.4-5.0); Alkaline Phosphatase 91 U/L (46-116); Anion Gap 13.6 mmol/L (3-11); BUN 12 mg/dL (7-18); Bilirubin, Total 0.4 mg/dL (0.2-1.0); CO2 18.4 mmol/L (21.0-32.0); CREATININE 0.6 mg/dL (0.55-1.02); Calcium 9.8 mg/dL (8.5-10.1); Chloride 102 mmol/L (98-107); Glucose 179 mg/dL (74-106); Potassium 3.7 mmol/L (3.5-5.1); Sodium 134 mmol/L (136-145); Total Protein 8.3 g/dL (6.4-8.2)
[2022-02-12 10:48] LABS: Lipase 51 U/L (73-393)
[2022-02-12] MEDS: Lactated Ringers 1,000 ML 1000 ML IV (11:27)
[2022-02-12 12:31] LABS: Bilirubin Negative (Negative); Blood Trace-lysed (Negative); Clarity Clear (Clear); Glucose Negative (Negative); Ketones 40 mg/dL (Negative); Leukocyte Esterase Negative (Negative); Nitrite Negative (Negative); Specific Gravity 1.025 (1.005-1.025); Urobilinogen 0.2 EU/dL (Up TO 0.2); pH 7.5 (5-8)
[2022-02-12 12:36] LABS: Bacteria Negative HPF (Negative); C & S Indicated? No; Casts Negative LPF (Negative); Crystals Negative HPF (Negative); Epithelial Cells Few HPF (Negative); Mucus Negative (Negative); RBC 0-2 HPF (0-2); WBC Negative HPF (0-5)
[2022-02-12] MEDS: Prochlorperazine 10 MG/2 ML VIAL IVP (12:37)
[2022-02-12 12:50] VITALS: BP 134/69; RESP 20; O2SAT 100
[2022-02-12 12:56] LABS: Anion Gap 9.2 mmol/L (3-11); BUN 9 mg/dL (7-18); CO2 22.8 mmol/L (21.0-32.0); CREATININE 0.6 mg/dL (0.55-1.02); Calcium 8.6 mg/dL (8.5-10.1); Chloride 104 mmol/L (98-107); Glucose 112 mg/dL (74-106); Potassium 3.3 mmol/L (3.5-5.1); Sodium 136 mmol/L (136-145)
[2022-02-12] MEDS: diphenhydrAMINE 50 MG/ML VIAL IVP (13:54)
[2022-02-12] MEDS: Famotidine 20 MG/2 ML VIAL IVP (13:55)
== END 2022-02-12 15:02 | disposition home or self-care (01) ==
PROVIDERS: Emergency Provider Physician Assistant; PCP Family Medicine
DX: R11.2 Nausea with vomiting, unspecified (principal); R10.9 Unspecified abdominal pain; I49.8 Other specified cardiac arrhythmias
CPT/HCPCS: 36415; 80048; 80053; 81025; 83690; 93005; 96361; 96365; 96366; 96375; 99284; 81003; 81015; 85025; 93010; J0780; J1200

== ENCOUNTER 2022-03-19 02:01 | Outpatient (CLI) | payer BC, SELFPAY ==
[2022-03-19 11:55] LABS: Source Nasal/Nares
[2022-03-19 16:14] LABS: COVID-19 PCR Negative (Negative)
== END 2022-03-19 02:02 | disposition home or self-care (01) ==
LOC: LBO 02:02
PROVIDERS: PCP Family Medicine; Visit Provider Surgery
DX: Z20.822 Contact with and (suspected) exposure to COVID-19 (principal); Z01.818 Encounter for other preprocedural examination
CPT/HCPCS: 87635

== ENCOUNTER 2022-03-20 06:59 | Day surgery (SDC) | payer BC, SELFPAY ==
--- NOTE | 2022-03-20 06:52 | W.PM.ENDDOP ---
Date of service: 03/20/22 Time of Service: 08:53 Endoscopy Report DATE OF PROCEDURE: 03/20/22 PRE-OP DIAGNOSIS: Nausea and Vomiting POST-OP DIAGNOSIS: other (gastritis and esophagitis) PROCEDURE: EGD with biopsies SURGEON: Sharifa Madden ANESTHESIA TYPE: General:No Airway PATHOLOGY: other (antrum and body bx, GE junction bx) COMPLICATIONS: None DISPOSITION: same day INDICATIONS: Rehana is a pleasant 21-year-old female who is been having some nausea and vomiting intermittently with diarrhea.? She also complains of mild epigastric and left upper quadrant pain.? She complains of increased burping and the feeling of being bloated.? Omeprazole 40 mg has helped slightly.? We discussed doing an upper endoscopy.? Risks, benefits and complications have been reviewed. Complications include but are not limited to bleeding, pain, perforation, sore throat, aspiration, and adverse reaction to the medications.? Questions were entertained and answered to their satisfaction and they wished to proceed. No guarantees were given or implied. FINDINGS: inflammation of the stomach and esophagus PROCEDURE DESCRIPTION: After informed consent was obtained the patient was take to the procedure room and placed in a supine position. Monitors were applied and a time out was done. The patients name, date of , procedure type, allergies to medications and metal in their body was reviewed. A bite block was placed and the patient was sedated. Once sedated and comfortable the gastroscope was advanced through the oropharynx which was grossly normal into the esophagus. The proximal and mid-esophagus were normal. In the distal esophagus there was inflammation noted. The scope was advanced into the stomach and through the pylorus into the 3rd portion of the duodenum. The duodenum was noted to be normal. The scope was retracted back into the stomach. There was inflammation noted. Biopsies were done to rule out H. pylori. There were no ulcers. The scope was retroflexed. The cardia and fundus were noted to be normal. There was no hiatal hernia noted. The scope was retracted back into the esophagus and biopsies were done of the GE junction to rule out Flores's. The Z line was irregular. The GE junction was at 35 cm. The scope was removed and the patient was woken up and taken back to [facility] in stable condition.
--- NOTE | 2022-03-20 06:53 | W.PM.DSUDISC ---
Discharge Plan Disposition Patient Disposition: HOME Condition: Good Discharge Details Reason For Visit: EGD Attending Provider: Sharifa Madden Primary Care Provider: Jeremiah Easton Home Meds and New Rx's Prescriptions: New omeprazole 40 mg capsule,delayed release(DR/EC) 40 mg PO BID Qty: 60 0RF sucralfate [Carafate] 1 gram tablet 1 g PO QID 14 Days Qty: 56 0RF Rx Instructions: Take 30 minutes before meals and before bedtime Continued escitalopram oxalate [Lexapro] 20 mg tablet 20 mg PO DAILY hydroxyzine HCl 25 mg tablet 25 mg PO QHS Nexplanon 68 MG implant 68 mg SQ ONCE Qty: 1 0RF cholecalciferol (vitamin D3) 10 mcg (400 unit) capsule 10 mcg PO DAILY bupropion HCl 300 mg Tablet Extended Release 24 Hr 300 mg PO DAILY prochlorperazine maleate [Compazine] 10 mg tablet 10 mg PO Q8H PRNQty: 10 0RF promethazine 25 mg suppository 25 mg [place] Q6H PRNQty: 12 0RF Discontinued omeprazole 20 mg capsule,delayed release(DR/EC) 20 mg PO DAILY Discharge Instructions Instructions: Gastritis (ED), Diet for Stomach Ulcers and Gastritis (ED), Esophagitis (DC) Additional Instructions: Findings: inflammation of the esophagus and stomach Follow up: 2 weeks in the office Please call if you develop: fevers >101.5 Nausea or Vomiting Abdominal pain that is not transient Rectal bleeding that is more then a tbsp A hard abdomen and inability to pass gas DAY SURGERY UNIT POST ENDOSCOPY INSTRUCTIONS Instructions for everyone who is given Anesthesia: For your safety, please do the following for the next 24 Hours: a. Do not drive or operate dangerous equipment b. Do not drink alcohol beverages or use any recreational drugs for the first 24 hours or while taking pain medications. The medications in your body may have a reaction that can be dangerous. c. Do not make any important decisions or sign any important papers 1. Generally there are no restrictions on your activity after a day or so has gone by, but you may feel a bit fatigued for a few days. 2. After you arrive home you may have a light meal and return to a normal diet as you can tolerate it without feeling sick to your stomach. 3. After surgery, you may feel pain or discomfort. This should be only transient, but if it persists please contact your doctor. 4. If there are any questions regarding the findings of your procedure, please feel free to contact your doctor. 6. If you are unable to contact your doctor with a problem, contact the hospital at [phone]. 7. Continue all your regular medications unless directed otherwise. I understand the above instructions and have no questions. Signature of Patient or Responsible Adult Escort Date/Time Name of Responsible Adult Escort Signature of Nurse Date/Time Referrals: Sharifa Madden MD [ [facility] STAFF PHYSICIAN] - 04/02/22 9:00 am (2 weeks) Activity:: Activity as Tolerated Diet:: low acid Discharge Orders Discharge Orders: Discharge Order (Routine); Ordered 03/20/22 Ordered By: Sharifa Madden
[2022-03-20 07:00] VITALS: BP 113/55; PULSE 76; RESP 18; TEMP 36.5; O2SAT 98
--- NOTE | 2022-03-20 07:05 | W.ANESPRE ---
General Info Date of Service Date Performed: 03/20/22 Height: 5 ft 4.5 in Weight: 66.905 kg Body Mass Index (BMI): 24.9 Surgical Procedure: Operation Date: 03/20/22 08:35 Proposed Procedure Side Surgeon p Gastroscopy Sharifa Madden MD Meds Allergies and Home Medications Allergies Allergy/AdvReac Type Severity Reaction Status Date / Time nickel Allergy rash Unverified 03/19/22 13:05 Home Medication Medication Instructions Recorded etonogestrel 68 mg subdermal 68 mg SQ ONCE #1 implant 01/09/18 implant (Nexplanon) escitalopram oxalate 20 mg tablet 20 mg PO DAILY 01/12/21 (Lexapro) hydroxyzine HCl 25 mg tablet 25 mg PO QHS 01/12/21 bupropion HCl 300 mg 24 hr tablet, 300 mg PO DAILY 02/12/22 extended release prochlorperazine maleate 10 mg 10 mg PO Q8H PRN #10 tabs 02/12/22 tablet (Compazine) promethazine 25 mg rectal 25 mg [place] Q6H PRN #12 ea 02/12/22 suppository cholecalciferol (vitamin D3) 10 10 mcg PO DAILY 02/21/22 mcg (400 unit) capsule omeprazole 20 mg capsule,delayed 20 mg PO DAILY 03/01/22 release Current Visit Medications: Current Medications Generic Name Dose Route Start Last Admin Trade Name Freq PRN Reason Stop Dose Admin Hyoscyamine Sulfate 0.125 mg 03/20/22 06:54 Hyoscyamine 0.125 Mg Sl/Oral/Chew SL DIRECTED PRN Ringer's Solution 1,000 mls @ 80 mls/hr 03/20/22 06:00 IV 04/18/22 23:59 INF[facility]ION [facility] IV Miscellaneous Supplies 1 each 03/20/22 06:00 Iv Access IV 04/18/22 23:59 DIRECTED MYRNA Ondansetron HCl 4 mg 03/20/22 06:54 Ondansetron 4 Mg/2 Ml Vial IVP Q4H PRN PRN Nausea / Vomiting Sodium Chloride 0 ml 03/20/22 06:00 Normal Saline Flush 10 Ml Syr IV 04/18/22 23:59 PRN PRN Sodium Chloride 0 ml 03/20/22 06:00 Normal Saline 10 Ml Vial IJ 04/18/22 23:59 DIRECTED PRN Sterile Water 0 ml 03/20/22 06:00 Water,Injection,Sterile 10 Ml Vial IJ 04/18/22 23:59 DIRECTED PRN PFSH Active Problems Active Problems: Problem Status Onset Code Marijuana use F12.90 Nicotine dependence F17.200 Sinus arrhythmia I49.8 Medical History Medical History Abnormal QT interval present on electrocardiogram STATED BY PT. AT LAST ER VISIT Anxiety and depression Contraceptive management Depression Fatigue Left ankle pain Nexplanon in place 12/22/2017 Nexplanon inserted Nexplanon in place (12/22/17) Nondisplaced fracture of fifth left metatarsal bone Sleep disorder Suicidal ideation Tobacco use Vitamin D deficiency Tobacco Smoking/Tobacco Use Status: Current every day Tobacco Type: cigarettes Second hand exposure: Yes Alcohol Alcohol Intake: current Alcohol intake frequency: a few times a month Details: ONCE PER WEEK Substance Use Substance use: Daily Substance use type: marijuana and other Details: daily Vital Signs and Lab Results Lab Results Blood Type / Crossmatch: No Data to Display Complete Blood Count: No Data to Display Complete Metabolic Panel: No Data to Display Liver Function Panel: No Data to Display Coagulation Panel: No Data to Display Cardiac Panel: No Data to Display Arterial Blood Gas: No Data to Display Venous Blood Gas: No Data to Display Pancreas Panel: No Data to Display Thyroid Panel: No Data to Display Infectious Disease: Coronavirus (COVID-19)(PCR) Negative (Negative) 03/19/22 09:15 Coronavirus 2019 Source Nasal/Nares 03/19/22 09:15 Blood Cultures: No Data to Display Toxicology Panel: No Data to Display Panel: No Data to Display Anesthesia Assessment and Plan Anesthesia History Personal History: No History of Anesthesia Complications Family History: No Family History of Anesthesia Complications Exercise Tolerance Exercise Tolerance: Metabolic Equivalents>4 Pertinent Negatives Pertinent Negatives: No Symptoms of GERD, No Major Cardiovascular Symptoms or Complaints, No Major Pulmonary Symptoms or Complaints and No History of CVA/TIA Cardiac & Pulmonary Exam Cardiac Exam: Normal S1/S2 Heart Sounds Pulmonary Exam: Clear Bilateral Breath Sounds Implantable Cardiac Device Does patient have a Pacemaker or an ICD?: No Airway Exam Known Difficult Airway: No Mallampati Class: 2 Mouth Opening: Normal (> 3cm) Thyromental Distance: Greater than 3 cm Neck Range of Motion: Full ROM Neck Circumference: Normal Teeth Condition: Normal Dentition ASA Classification ASA Score: ASA 2 Emergency Case?: No NPO Status NPO Status: NPO Clears >2 hours, Solids >8 hours Status Status: Negative HCG Anesthesia Plan Resuscitation Status: Full Code Anesthesia Technique: General Anesthesia Airway Planned: Natural Airway Monitors Used: Standard Monitors
[2022-03-20] MEDS: Lactated Ringers 1,000 ML 80 ML IV (07:34)
[2022-03-20 08:30] VITALS: BMI 24.9
--- NOTE | 2022-03-20 08:45 | STOM_PTH ---
PATIENT: Rehana Escamilla LOC: [facility] U#:[id number] AGE/SX: 21/F ROOM: RE03/20/[address]: Sharifa Madden MD : 2000 BED: DIS: 03/20/2022 SPEC #: [id number] RECD: 03/20/22 12:11 STATUS: CHEO REDelmi #: [id number] ANABEL: 03/20/22 08:[address]: Sharifa Madden DEPT: Surgical Specimen RECD BY: Anastasiya Bishop ENTERED: 03/20/22 12:13 SP TYPE: STOMACH OTHR DR: Nereida Burns Tissues: 1 - STOMACH BIOPSY 2 - ESOPHAGUS BIOPSY Procedures: GROSS AND MICRO LEVEL 4 Comments: [id number]
[2022-03-20 08:55] VITALS: BP 112/62; PULSE 72; RESP 18; TEMP 36.6; O2SAT 96
--- NOTE | 2022-03-20 09:21 | W.ANESPOSTOP ---
Postoperative Evaluation Date, Time and Location Date Performed: 03/20/22 Time Performed: 08:57 Patient Location: Day Surgery Unit Vital Signs Most Recent Imported Vital Signs: Most Recent Vital Signs Temp Pulse Resp BP Pulse Ox 36.6 C 72 18 112/62 96 03/20/22 08:55 03/20/22 08:55 03/20/22 08:55 03/20/22 08:55 03/20/22 08:55 Pain Score Most Recent Pain Score: Most Recent Pain Score Pain Level 0 03/20/22 08:55 Assessment Mental Status: Awake (Alert & Oriented to Patient Baseline) Airway and Respiratory Function: Patent airway with normal (patient baseline) respiratory exam Cardiovascular Function: Hemodynamically Stable Hydration Status: Adequately Hydrated Nausea & Vomiting: No Nausea or Vomiting Pain: Pt. Denies Any Pain Peripheral Nerve Block: Patient did not receive a nerve block
[2022-03-20 09:31] VITALS: BP 112/78; PULSE 67; RESP 18; TEMP 36.1; O2SAT 98
== END 2022-03-20 09:47 | disposition home or self-care (01) ==
PROVIDERS: PCP Nurse Practitioner Family; Visit Provider Surgery
PROC: 0DJ68ZZ Inspection of Stomach, Via Natural or Artificial Opening Endoscopic (ICD-10-PCS; CPT 43235; principal; 2022-03-20 08:30)
DX: R11.2 Nausea with vomiting, unspecified (principal); K29.70 Gastritis, unspecified, without bleeding; K20.90 Esophagitis, unspecified without bleeding; K22.89 Other specified disease of esophagus; K31.89 Other diseases of stomach and duodenum
CPT/HCPCS: 43239; 81025; 88305

== ENCOUNTER 2023-08-17 13:32 | Emergency (ER) | payer BC, SELFPAY ==
[2023-08-17 13:42] VITALS: BP 100/71; PULSE 82; RESP 16; TEMP 36.3; O2SAT 97
--- NOTE | 2023-08-17 14:09 | W.ED.GENAD ---
[facility] General Mode of arrival: ambulatory. Date/Time Provider Initiated Documentation: 08/17/23 13:36. Limitations to Documentation: no limitations. Information obtained by: patient. HPI Narrative: 22-year-old female with history of anxiety depression, presents with chief complaint of vomiting. Patient has nausea and vomiting since this morning. She has associated diffuse abdominal cramping. Nausea and vomiting is severe. Constant. No modifiers. Not able to tolerate oral fluids. Patient notes she has had similar episodes in the past and has been told that she may have cannabinoid hyperemesis syndrome. She does smoke marijuana daily. Related Data Home Medications Medication Instructions Recorded Confirmed hydroxyzine HCl 25 mg tablet 25 mg PO QHS 01/12/21 08/17/23 bupropion HCl 300 mg 24 hr tablet, 300 mg PO DAILY 02/12/22 08/17/23 extended release lamotrigine 25 mg tablet 25 mg PO DAILY 08/17/23 08/17/23 ondansetron 4 mg disintegrating 4 mg PO Q8H PRN nausea and 08/17/23 tablet vomiting #7 tabs Previous Rx's Medication Instructions Recorded ondansetron 4 mg disintegrating 4 mg PO Q8H PRN nausea and 08/17/23 tablet vomiting #7 tabs Allergies Allergy/AdvReac Type Severity Reaction Status Date / Time nickel Allergy rash Unverified 08/17/23 13:46 General Stated Complaint: Nausea/Vomit/Diar ASHER: 3 Review of Systems All systems reviewed & are unremarkable except as noted in HPI and below Constitutional Constitutional: Denies fever(s) Gastrointestinal Gastrointestinal: Reports as per HPI Exam Const General: cooperative and other (Vomiting) Nutritional Appearance: well nourished Orientation: alert [facility] Mouth: moist mucous membranes Eyes Conjunctivae: normal conjunctivae Sclera: normal sclerae Resp Auscultation: clear to auscultation bilaterally, no rales, no rhonchi and no wheezes Cardio Rate: regular rate and not tachycardic Rhythm: regular rhythm GI Inspection: non-distended Palpation: soft, not firm, no guarding, no masses, not rigid and tender (Diffuse) with no rebound tenderness Auscultation: normal bowel sounds Skin General skin exam: no rashes or lesions noted Neuro General: patient alert, patient awake, patient oriented x3 and tone normal Extrem General: no edema Psych Appearance: grossly normal Mental Status: mental status grossly normal Course Vital Signs Vital signs: Vital Signs Temperature 36.3 C L 08/17/23 13:42 Pulse 82 08/17/23 13:42 Respiratory Rate 16 08/17/23 13:42 Blood Pressure 100/71 08/17/23 13:42 Pulse Oximetry 97 08/17/23 13:42 Temperature 36.3 C L 08/17/23 13:42 Temperature Source Temporal Artery Scan 08/17/23 13:42 Pulse 82 08/17/23 13:42 Respiratory Rate 16 08/17/23 13:42 Blood Pressure 100/71 08/17/23 13:42 Blood Pressure Position Sitting 08/17/23 13:42 Pulse Oximetry 97 08/17/23 13:42 Oxygen Delivery Method Room Air 08/17/23 13:42 Oxygen Flow Rate 0 08/17/23 13:42 Pain Level 8 08/17/23 13:42 Medical Decision Making 1412??22-year-old female here with nausea and vomiting with diffuse abdominal cramping since this morning. Patient is actively vomiting. She does have diffuse abdominal tenderness with no peritoneal findings. Plan to treat with antiemetic and IV fluid bolus and reassess. Considered biliary and pancreatic disease and will check labs. Symptoms may be secondary to cannabinoid hyperemesis syndrome. I did discuss this with the patient recommended abstaining from marijuana use. -- Labs reviewed and nondiagnostic. -- Patient reassessed and still having symptoms. Reglan 10 mg IV administered. Patient given D5 normal saline infusion. 1643 --patient was reassessed and symptoms significantly improved. Abdominal exam benign. Plan for discharge with outpatient follow-up. Disposition decision was made weighing the risks and benefits of hospitalization versus outpatient treatment, the risk for further decompensation, and the patient's wishes. The patient was stable and requested discharge. Prior to discharge, my usual and customary return precautions were reviewed with the patient - this included follow-up instructions and reason to return to the emergency department if condition worsens, does not improve as expected, or other new concerns arise. Lab Data Lab results reviewed: Yes I reviewed the patient's lab results. Labs: Laboratory Tests Range/Units 08/17/23 08/17/23 14:11 14:11 WBC (4.4-10.8) 10^3/uL 17.89 H RBC (3.93-5.22) 10^6/uL 4.79 Hgb (11.2-15.7) g/dL 13.9 Hct (36.0-46.0) % 39.5 MCV (80-95) fL 83 MCH (27.0-33.0) pg 29.0 MCHC (32.0-36.0) % 35.2 RDW (11.7-14.6) % 12.7 Plt Count (130-400) 10^3/uL 413 H MPV (8.0-11.0) fL 10.6 Immature Gran % 0.5 Neutrophils % 83.0 Lymphocytes % 11.4 Monocytes % 4.3 Eosinophils % 0.1 Basophils % 0.7 Nucleated RBC % (0.0-0.3) % 0.0 Absolute Neutrophils (1.2-6.7) 10^3/uL 14.85 H Absolute Lymphocytes (1.2-3.4) 10^3/uL 2.04 Absolute Monocytes (0.1-0.8) 10^3/uL 0.77 Absolute Eosinophils (0.0-0.7) 10^3/uL 0.02 Absolute Basophils (0.0-0.2) 10^3/uL 0.13 Sodium (136-145) mmol/L 138 Potassium (3.5-5.1) mmol/L 3.7 Chloride (98-107) mmol/L 101 Carbon Dioxide (21.0-32.0) mmol/L 17.6 L Anion Gap (3-11) mmol/L 19.4 H BUN (7-18) mg/dL 8 Creatinine (0.55-1.02) mg/dL 0.8 Est GFR (CKD-EPI 2020) (mL/min/1.73m2) 106.11 Glucose (74-106) mg/dL 141 H Calcium (8.5-10.1) mg/dL 10.0 Magnesium (1.8-2.4) mg/dL 1.8 Total Bilirubin (0.2-1.0) mg/dL 0.5 AST (15-37) U/L 26 ALT (14-59) U/L 37 Alkaline Phosphatase (46-116) U/L 103 Total Protein (6.4-8.2) g/dL 8.2 Albumin (3.4-5.0) g/dL 4.8 Lipase (16-77) U/L < 10 L Cancelled Serum HCG, Qual Negative Quality:SDOH Health Related Social Needs: No Data to Display PFSH All Active Problems Abdominal pain (Acute) Nausea and vomiting (Acute) Sinus arrhythmia (Acute) Nicotine dependence (Acute) Marijuana use (Acute) Medical History (Updated 08/17/23 @ 16:24 by Jerry Lozano MD) Abnormal QT interval present on electrocardiogram STATED BY PT. AT LAST ER VISIT Nexplanon in place (12/22/17) Anxiety and depression Sleep disorder Fatigue Nondisplaced fracture of fifth left metatarsal bone Vitamin D deficiency Suicidal ideation Left ankle pain Contraceptive management Nexplanon in place 12/22/2017 Nexplanon inserted Tobacco use Depression Family History Mother No problems noted. Father Essential hypertension Social History Smoking/Tobacco Use Status: Current every day Tobacco Type: cigarettes Second Hand Exposure: Yes Smoking risk assessment performed?: Yes Alcohol Intake: current Alcohol Intake frequency: a few times a month Details: ONCE PER WEEK Drug use: Daily Substance use type: marijuana and other Details: daily Number of Children: 0 Current gender identity: female Seatbelt use: always Do you feel safe at home: Yes Do you feel safe in your relationship?: Yes Female Reproductive History Menstrual Age of Menarche: 11 control method: implanted (NEXPLANON) Discharge Plan Disposition Patient Disposition: Home Condition: Stable Discharge Details Clinical Impression: Nausea and vomiting, Abdominal pain Primary Care Provider: Nereida Burns ED Provider: Jerry Lozano Home Meds and New Rx's Prescriptions: New ondansetron 4 mg tablet,disintegrating 4 mg PO Q8H PRN (Reason: nausea and vomiting) Qty: 7 0RF Continued hydroxyzine HCl 25 mg tablet 25 mg PO QHS bupropion HCl 300 mg Tablet Extended Release 24 Hr 300 mg PO DAILY lamotrigine 25 mg tablet 25 mg PO DAILY Patient Comments: TAKE ONE TABLET BY MOUTH EVERY DAY Discontinued escitalopram oxalate [Lexapro] 20 mg tablet 20 mg PO DAILY Nexplanon 68 MG implant 68 mg SQ ONCE Qty: 1 0RF cholecalciferol (vitamin D3) 10 mcg (400 unit) capsule 10 mcg PO DAILY prochlorperazine maleate [Compazine] 10 mg tablet 10 mg PO Q8H PRNQty: 10 0RF promethazine 25 mg suppository 25 mg [place] Q6H PRNQty: 12 0RF omeprazole 40 mg capsule,delayed release(DR/EC) 40 mg PO BID Qty: 60 0RF Discharge Instructions Instructions: Acute Nausea and Vomiting (ED), Abdominal Pain (ED) Additional Instructions: Please stop using marijuana. This may be causing your nausea and vomiting. Please drink small amounts of clear fluid to maintain adequate hydration. Do not consume large amounts all at once as this may cause nausea. Be sure to drink frequently in order to stay hydrated. Maintain a clear liquid diet tonight and tomorrow morning. You may advance your diet to bland foods tomorrow afternoon/evening. You may advance her diet further the following day as tolerated. Please contact your primary care physician to arrange follow-up. Return to the ER immediately for any worsening or new concerning symptoms. Stand Alone Forms: Work Release
[2023-08-17 14:17] LABS: Abs Immature Grans 0.09 10^3/uL (0.0-0.06); Absolute Basophil Count 0.13 10^3/uL (0.0-0.2); Absolute Lymphocyte Count 2.04 10^3/uL (1.2-3.4); Absolute Monocyte Count 0.77 10^3/uL (0.1-0.8); Absolute Neutrophil Count 14.85 10^3/uL (1.2-6.7); Basophils % 0.7; Eosinophils % 0.1; HCT 39.5 % (36.0-46.0); HGB 13.9 g/dL (11.2-15.7); Immature Grans % 0.5; Lymphocytes % 11.4; MCHC 35.2 % (32.0-36.0); MCV 83 fL (80-95); MPV 10.6 fL (8.0-11.0); Monocytes % 4.3; Platelet Count 413 10^3/uL (130-400); RBC 4.79 10^6/uL (3.93-5.22); RDW 12.7 % (11.7-14.6); RDW-SD 38.3 fL; WBC 17.89 10^3/uL (4.4-10.8)
[2023-08-17 14:18] LABS: Absolute Eosinophil Count 0.02 10^3/uL (0.0-0.7)
[2023-08-17] MEDS: Lactated Ringers 500 ML IV (14:29)
[2023-08-17 14:30] VITALS: BP 100/71; PULSE 82; RESP 16; TEMP 36.3; O2SAT 97
[2023-08-17] MEDS: Ondansetron 4 MG/2 ML VIAL IVP (14:30)
[2023-08-17 14:40] LABS: ALT 37 U/L (14-59); AST 26 U/L (15-37); Albumin 4.8 g/dL (3.4-5.0); Alkaline Phosphatase 103 U/L (46-116); Anion Gap 19.4 mmol/L (3-11); BUN 8 mg/dL (7-18); Bilirubin, Total 0.5 mg/dL (0.2-1.0); CO2 17.6 mmol/L (21.0-32.0); CREATININE 0.8 mg/dL (0.55-1.02); Chloride 101 mmol/L (98-107); Estimated GFR 106.11 (mL/min/1.73m2); Glucose 141 mg/dL (74-106); Lipase < 10 U/L (16-77); Magnesium 1.8 mg/dL (1.8-2.4); Potassium 3.7 mmol/L (3.5-5.1); Sodium 138 mmol/L (136-145); Total Protein 8.2 g/dL (6.4-8.2)
[2023-08-17 15:56] LABS: HCG Qual (Serum) Negative
[2023-08-17] MEDS: Metoclopramide 10 MG/2 ML VIAL IVP (15:59)
[2023-08-17] MEDS: LORazepam 2 MG/ML VIAL 0.5 MG IVP (15:59)
[2023-08-17] MEDS: DEXTROSE 5%-LACTATED RINGERS 1,000 ML 150 ML IV (16:00)
[2023-08-17 16:46] VITALS: BP 120/67; PULSE 76; RESP 14; O2SAT 99
== END 2023-08-17 16:47 | disposition home or self-care (01) ==
PROVIDERS: Emergency Provider Student in an Organized Health Care Education/Training Program; PCP Nurse Practitioner Family
DX: R11.2 Nausea with vomiting, unspecified (principal); R19.7 Diarrhea, unspecified; R10.9 Unspecified abdominal pain
CPT/HCPCS: 80053; 83690; 96361; 96374; 96375; 99284; 83735; 84703; 85025; 99283; J2060; J2405; J2765; J7042

== ENCOUNTER 2023-08-20 14:04 | Outpatient (REF) | payer BC, SELFPAY ==
[2023-08-20 21:13] LABS: Abs Immature Grans 0.02 10^3/uL (0.0-0.06); Absolute Basophil Count 0.12 10^3/uL (0.0-0.2); Absolute Eosinophil Count 0.12 10^3/uL (0.0-0.7); Absolute Lymphocyte Count 3.34 10^3/uL (1.2-3.4); Absolute Monocyte Count 0.69 10^3/uL (0.1-0.8); Absolute Neutrophil Count 6.07 10^3/uL (1.2-6.7); Basophils % 1.2; Eosinophils % 1.2; HCT 40.9 % (36.0-46.0); HGB 13.8 g/dL (11.2-15.7); Immature Grans % 0.2; Lymphocytes % 32.2; MCH 28.9 pg (27.0-33.0); MCHC 33.7 % (32.0-36.0); MCV 86 fL (80-95); Monocytes % 6.7; Neutrophils % 58.5; Platelet Count 323 10^3/uL (130-400); RBC 4.78 10^6/uL (3.93-5.22); RDW 12.5 % (11.7-14.6); RDW-SD 38.9 fL; WBC 10.36 10^3/uL (4.4-10.8)
[2023-08-20 21:30] LABS: TSH (W/Ref FT4) 1.01 uIU/mL (0.36-3.74)
[2023-08-20 22:16] LABS: Vitamin D 25 Total 13.3 ng/mL (30-100)
== END 2023-08-20 14:05 | disposition home or self-care (01) ==
LOC: NCHCN 14:04
PROVIDERS: PCP Nurse Practitioner Family; Visit Provider Nurse Practitioner Family
DX: F41.8 Other specified anxiety disorders (principal); E55.9 Vitamin D deficiency, unspecified; D72.829 Elevated white blood cell count, unspecified
CPT/HCPCS: 82306; 84443; 85025

== ENCOUNTER → 2023-11-14 10:52 | Outpatient (CLI) | payer BC, SELFPAY ==
--- NOTE | 2023-11-14 | DI.RAD_ITS ---
Exam(s) XR LUMBAR SPINE COMPLETE EXAM: XR LUMBAR SPINE COMPLETE CLINICAL HISTORY: Lumbago with sciatica, rt side, M54.41; LBP with neuralgia of sciatic nerve. TECHNIQUE: 2D digital imaging was performed. Five views. COMPARISON: CR XR lumbar spine complete from 08/29/2018 FINDINGS: BONES: No fracture or destructive lesion. Vertebral body heights are maintained. No facet hypertroph y identified. No spondylolysis. DISKS: Intervertebral disc spaces are maintained. ALIGNMENT: Lumbar spinal alignment is within normal limits. No spondylo listhesis. SOFT TISSUE: Normal. IMPRESSION: Unremarkable radiographs of the lumbar spine. DATA REPOSITORY: RADIATION DOSE DELIVERED:
== END ==
PROVIDERS: PCP Nurse Practitioner Family; Visit Provider Nurse Practitioner Family
DX: M54.41 Lumbago with sciatica, right side (principal)
CPT/HCPCS: 72110

== ENCOUNTER → 2023-11-19 01:16 | Outpatient (CLI) | payer BC, SELFPAY ==
--- NOTE | 2023-11-19 | DI.RAD_ITS ---
Exam(s) XR HIP PELVIS ADULT BL EXAM: XR HIP PELVIS ADULT BL CLINICAL HISTORY: LOW BACK PAIN ,LUMBAGO RT SIDE,M54.41. TECHNIQUE: 2D digital imaging was performed. Five views. COMPARISON: CR XR lumbar spine complete from 08/29/2018 CR XR LUMBAR SPINE COMPLETE from 11/14/2023 FINDINGS: BONES: No acute fracture is present. No bony destructive lesion is seen. JOINTS: No dislocation present. Hip joint spaces are maintained. SI joints and pubic symphysis ar e unremarkable. SOFT TISSUE: Normal. IMPRESSION: Unremarkable radiographs of the bilateral hips. DATA REPOSITORY: RADIATION DOSE DELIVERED:
== END ==
PROVIDERS: PCP Nurse Practitioner Family; Visit Provider Nurse Practitioner Family
DX: M54.41 Lumbago with sciatica, right side (principal)
CPT/HCPCS: 73521

== ENCOUNTER → 2024-01-09 00:48 | Outpatient (CLI) | payer BC, SELFPAY ==
--- NOTE | 2024-01-09 12:09 | DI.RAD_ITS ---
Exam(s) XR SACRUM COCCYX EXAM: XR SACRUM COCCYX CLINICAL HISTORY: PAIN IN COCCYX, M53.3. TECHNIQUE: 2D digital imaging was performed. Three images were obtained. COMPARISON: CT CT ABDOMEN PELVIS W from 10/15/2021 CR XR LUMBAR SPINE COMPLETE from 11/14/2023 CR XR HIP PELVIS ADULT BL from 11/19/2023 FINDINGS: BONES: No acute fracture is present. No bony destructive lesion is seen. There is anterior displaceme nt of the tip of the coccyx which is unchanged dating back to the CT scan of the abdomen and pelvis f rom 10/15/2021. JOINTS: No dislocation present. SOFT TISSUE: Normal. IMPRESSION: No acute abnormality. Unchanged appearance of the distal coccyx since 2021. DATA REPOSITORY: RADIATION DOSE DELIVERED:
== END ==
PROVIDERS: PCP Nurse Practitioner Family; Visit Provider Nurse Practitioner Family
DX: M53.3 Sacrococcygeal disorders, not elsewhere classified (principal)
CPT/HCPCS: 72220

== ENCOUNTER 2024-08-17 16:17 | Outpatient (REF) | payer BC, MEDICAID, SELFPAY ==
--- NOTE | 2024-08-17 15:40 | PAPFT_PTH ---
PATIENT: Rehana Escamilla LOC: [facility] U#:[id number] AGE/SX: 23/F ROOM: RE08/17/[address]: Idalmis Sanchez NP : 2000 BED: DIS: 08/17/2024 SPEC #: [id number] RECD: 08/17/24 17:40 STATUS: CHEO BROWN #: [id number] ANABEL: 08/17/24 15:[address]: Idalmis Sanchez NP DEPT: [facility] Cytology RECD BY: Anastasiya Bishop ENTERED: 08/17/24 17:40 SP TYPE: PAPFT OTHR DR: Nereida Burns Tissues: 1 - CX/ENDOCX FOR PAP SMEARS Procedures: PAP THIN PREP/[facility] Screening Comments: [id number] (CHLAMYDIA/GC)
[2024-08-18 12:39] LABS: Chlamydia Result Negative (Negative); GC Result Negative (Negative)
== END 2024-08-17 16:18 | disposition home or self-care (01) ==
LOC: LBN 16:17
PROVIDERS: PCP Nurse Practitioner Family; Visit Provider Nurse Practitioner Women's Health
DX: Z01.419 Encounter for gynecological examination (general) (routine) without abnormal findings (principal); Z97.5 Presence of (intrauterine) contraceptive device; Z12.4 Encounter for screening for malignant neoplasm of cervix; Z11.3 Encounter for screening for infections with a predominantly sexual mode of transmission
CPT/HCPCS: 87491; 87591; 88142

== ENCOUNTER 2025-05-12 16:28 | Outpatient (REF) | payer BC, MEDICAID, SELFPAY ==
[2025-05-12 21:21] LABS: HCT 43.0 % (36.0-46.0); HGB 14.2 g/dL (11.2-15.7); MCH 28.4 pg (27.0-33.0); MCHC 33.0 % (32.0-36.0); MCV 86 fL (80-95); MPV 10.6 fL (8.0-11.0); Platelet Count 333 10^3/uL (130-400); RBC 5.00 10^6/uL (3.93-5.22); RDW 12.0 % (11.7-14.6); RDW-SD 37.8 fL; WBC 6.17 10^3/uL (4.4-10.8)
[2025-05-12 21:24] LABS: ESR 4 mm/hr (0-20)
[2025-05-12 21:55] LABS: ALT 35 U/L (14-59); AST 26 U/L (15-37); Albumin 4.8 g/dL (3.4-5.0); Alkaline Phosphatase 93 U/L (46-116); Anion Gap 9.1 mmol/L (3-11); BUN 7 mg/dL (7-18); Bilirubin, Total 0.4 mg/dL (0.2-1.0); CO2 27.9 mmol/L (21.0-32.0); Calcium 9.6 mg/dL (8.5-10.1); Chloride 102 mmol/L (98-107); Cholesterol 198 mg/dL (<200); Glucose 89 mg/dL (74-106); HDL Cholesterol 56 mg/dL (>or=50); Potassium 4.8 mmol/L (3.5-5.1); Sodium 139 mmol/L (136-145); Total Protein 8.1 g/dL (6.4-8.2); Vitamin D 25 Total 21 ng/mL (30-100)
[2025-05-12 22:15] LABS: C-Reactive Protein < 0.50 mg/dL (<or=0.5)
== END 2025-05-12 16:29 | disposition home or self-care (01) ==
LOC: NCHCN 16:28
PROVIDERS: PCP Nurse Practitioner Family; Visit Provider Nurse Practitioner Family
DX: Z00.00 Encounter for general adult medical examination without abnormal findings (principal); R93.5 Abnormal findings on diagnostic imaging of other abdominal regions, including retroperitoneum; E55.9 Vitamin D deficiency, unspecified
CPT/HCPCS: 80053; 80061; 82306; 85027; 85652; 86812; 86140

== ENCOUNTER 2025-06-20 10:20 | Outpatient (REF) | payer BC, MEDICAID, SELFPAY ==
[2025-06-21 11:46] LABS: Chlamydia Result Negative (Negative); GC Result Negative (Negative)
== END 2025-06-20 10:21 | disposition home or self-care (01) ==
LOC: LBN 10:20
PROVIDERS: PCP Nurse Practitioner Family; Visit Provider Nurse Practitioner Women's Health
DX: N76.0 Acute vaginitis (principal); Z11.3 Encounter for screening for infections with a predominantly sexual mode of transmission
CPT/HCPCS: 87491; 87591; 87480; 87510; 87660